=== PATIENT | male | born 1965 | race Two or more races ===

== ENCOUNTER 2017-01-20 15:52 | Emergency (ER) | payer MEDICAID, OTHER ==
[~2017-01-20] VITALS: Ht 167.6 cm; Wt 90.7 kg
[2017-01-20 16:05] VITALS: BP 158/95
== END 2017-01-20 20:07 | disposition home or self-care (01) ==
LOC: ER 16:12
DX: L03.115 Cellulitis of right lower limb (principal); B99.8 Other infectious disease

== ENCOUNTER 2021-07-07 21:44 | Emergency (ER) | payer MEDICAID ==
[~2021-07-07] VITALS: Ht 167.6 cm; Wt 102.1 kg
[2021-07-07 21:44] VITALS: BP 153/103
== END 2021-07-08 01:53 | disposition left against medical advice (07) ==
LOC: ER 21:45
DX: J02.9 Acute pharyngitis, unspecified (principal); Z53.21 Procedure and treatment not carried out due to patient leaving prior to being seen by health care provider
CPT/HCPCS: 36415; 87880